=== PATIENT | female | born 1995 | race American Indian/Alaskan Native ===

== ENCOUNTER 2017-04-20 00:17 | Emergency (ER) | payer BC, OTHER ==
[2017-04-20 00:33] VITALS: RESP 16
[2017-04-20] MEDS ORDERED: Penicillin G Benzathine 1.2 Mill Unit/2 ml Syr IM STA (00:46)
--- NOTE | 2017-04-20 00:51 | ED PDOC ---
Arrival/HPI - General Chief Complaint: Flu-like Symptoms Time Seen by Provider: 04/20/17 00:46 Historian: Patient - History of Present Illness Narrative History of Present Illness (Text): 04/20/17 00:49 21 yo F w/ PMH of asthma and anemia, reports 1 day of fever with runny nose, nasal congestion, bodyaches, malaise and sore throat. Otherwise: (-) cough, (-) rash, (-) headache, (-) SOB, (-) chest pain, (-) N/V/D, (-) abdominal pain, (-) flank pain, (-) urinary symptoms, (-) recent travel, (-) sick contacts. Reports not receiving the flu vaccine. FARIBA Ibarra Past Medical History - Provider Review Nursing Documentation Reviewed: Yes - Pulmonary Hx Asthma: Yes - Psychiatric Hx Substance Use: No (denies) - Surgical History Hx Section: Yes (x2) - Anesthesia Hx Anesthesia: Yes Hx Anesthesia Reactions: No Hx Malignant Hyperthermia: No Family/Social History - Physician Review Nursing Documentation Reviewed: Yes Family/Social History: Unknown Family HX Smoking Status: Light Smoker < 10 Cigarettes Daily Hx Alcohol Use: Yes Frequency of alcohol use: Few days per week Hx Substance Use: No (denies) Allergies/Home Meds Allergies/Adverse Reactions: Allergies No Known Allergies Allergy (Verified 04/20/17 00:39) Review of Systems - Review of Systems Constitutional: Normal, Fatigue, Fevers. absent: Weight Change, Night Sweats ENT: Sore Throat, Rhinorrhea, Sinus Congestion Respiratory: Normal. absent: SOB, Cough, Sputum Cardiovascular: Normal. absent: Chest Pain, Palpitations, Edema Gastrointestinal: Normal. absent: Abdominal Pain, Diarrhea, Nausea, Vomiting Genitourinary Female: Normal. absent: Dysuria, Frequency, Hematuria Musculoskeletal: Normal. absent: Arthralgias, Back Pain, Neck Pain Skin: Normal. absent: Rash, Pruritis, Skin Lesions Physical Exam - Physical Exam Narrative Physical Exam (Text): 04/20/17 00:53 GENERAL APPEARANCE: Patient is awake, alert, oriented x 3, in no acute distress. SKIN: Warm, dry; (-) cyanosis, (-) rash. (-) Decubitus Ulcer EYES: (-) conjunctival pallor, (-) scleral icterus, (-) conjunctival hemorrhage. ENMT: Mucous membranes moist. TMs: (-) erythema. Airway patent: (-) stridor. Pharynx: (+) erythema, (+) exudate. NECK: (-) tenderness, (-) stiffness, (-) meningismus, (+) non-tender lymphadenopathy. CHEST AND RESPIRATORY: (-) accessory muscle use. Lungs: (-) rales, (-) rhonchi, (-) wheezes, (-) rub; breath sounds equal bilaterally. HEART AND CARDIOVASCULAR: (-) irregularity; (-) murmur, (-) gallop, (-) rub. ABDOMEN AND GI: Soft; (-) tenderness, (-) guarding; (-) organomegaly; (-) mass ; (-) CVA tenderness. EXTREMITIES: (-) deformity; (-) cellulitis, (-) lymphangitis; (-) subungual hemorrhage; (-) edema. NEURO AND PSYCH: Mental status as above; (-) focal findings. Vital Signs Temp Pulse Resp BP Pulse Ox 04/20/17 01:50 100.1 F H 112 H 16 115/92 H 100 04/20/17 00:58 102.9 F H 04/20/17 00:33 102.9 F H 115 H 16 129/76 99 Medical Decision Making ED Course and Treatment: 04/20/17 00:51 21 yo F reports 1 day of fever with runny nose, nasal congestion, bodyaches, malaise and sore throat. Plan : - Motrin 800 mg PO - Decadron 10 mg IM - PCN G 1.2 million units IM On re-evaluation, patient is laying in bed in no acute distress, speaking in full sentences, no drooling. VS T 100.1 P 112 R 16 BP 115/92 O2sat 100%RA. Dx of pharyngitis, and possible influenza d/w the patient. Advised bedrest, drink plenty of fluids, take motrin for fever. Instructed to follow up with primary care physician in 1-2 days without fail. Advised to take medication as prescribed. Return to the emergency room at any time for any new or worsening symptoms. Patient states she fully agrees with and understands discharge instructions. States that she agrees with the plan and disposition. Verbalized and repeated discharge instructions and plan. I have given the patient opportunity to ask any additional questions. - Medication Orders Current Medication Orders: Discontinued Medications Dexamethasone (Decadron Inj) 10 mg IM STAT STA Stop: 04/20/17 00:47 Last Admin: 04/20/17 00:58 Dose: 10 mg IM Administration Charges Document 04/20/17 00:58 YP (Rec: 04/20/17 00:58 YP [id number]) Injection Site MAR Injection Site Left Deltoid Charges for Administration # of IM Administrations 1 Ibuprofen (Motrin Tab) 800 mg PO STAT STA Stop: 04/20/17 00:47 Last Admin: 04/20/17 00:58 Dose: 800 mg MAR Pain/Vitals Document 04/20/17 00:58 YP (Rec: 04/20/17 00:58 YP [id number]) Vitals Temperature (97.6 F-99.6 F) 102.9 F Temperature Source Oral Penicillin G Benzathine (Bicillin L-A Inj) 1,200,000 units IM STAT STA PRN Reason: Protocol Stop: 04/20/17 00:47 Last Admin: 04/20/17 00:58 Dose: 1,200,000 units IM Administration Charges Document 04/20/17 00:58 YP (Rec: 04/20/17 00:58 YP [id number]) Injection Site MAR Injection Site Left Gluteus Jesse Charges for Administration # of IM Administrations 1 - PA / [employer] / Resident Statement / has reviewed & agrees with the documentation as recorded. Disposition/Present on Arrival - Present on Arrival Any Indicators Present on Arrival: No History of DVT/PE: No History of Uncontrolled Diabetes: No Urinary Catheter: No History of Decub. Ulcer: No History Surgical Site Infection Following: None - Disposition Have Diagnosis and Disposition been Completed?: Yes Diagnosis: Fever, Pharyngitis Disposition: HOME/ ROUTINE Disposition Time: 00:48 Patient Plan: Discharge Condition: STABLE Discharge Instructions (ExitCare): Pharyngitis (ED), Fever in Adults (ED), Influenza (ED) Print Language: KOREAN Additional Instructions: Thank you for letting us take care of you today. You were treated for fever, pharyngitis, consider influenza. The emergency medical care you received today was directed at your acute symptoms. If you were prescribed any medication, please fill it and take as directed. It may take several days for your symptoms to resolve. Return to the Emergency Department if your symptoms worsen, do not improve, or if you have any other problems. Please contact your doctor in 2 days for re-evaluation and follow up. Bring any paperwork you were given at discharge with you along with any medications you are taking to your follow up visit. Our treatment cannot replace ongoing medical care by a primary care provider (PCP) outside of the emergency department. Thank you for allowing the [facility] team to be part of your care today. Prescriptions: Ibuprofen [Motrin Tab] 600 mg PO QID PRN #20 tab PRN Reason: Fever >100.4 F Oseltamivir Phosphate [Tamiflu] 75 mg PO BID #10 capsule Referrals: PCP,NO [Primary Care Provider] - Follow up with primary Forms: [employer] [facility] / [facility] (Senegalese), WORK NOTE, SCHOOL NOTE
[2017-04-20 01:51] VITALS: BP 115/92; PULSE 112; TEMP 100.1; O2SAT 100
== END 2017-04-20 01:54 | disposition home or self-care (01) ==
LOC: ED 00:17
DX: J02.9 Acute pharyngitis, unspecified (principal); R50.9 Fever, unspecified; F17.210 Nicotine dependence, cigarettes, uncomplicated
CPT/HCPCS: 96372; 99284; J0561; J1100

== ENCOUNTER 2018-07-02 18:26 | Emergency (ER) | payer SELFPAY ==
[2018-07-02 18:34] VITALS: RESP 18; O2SAT 100; BMI 40.7
--- NOTE | 2018-07-02 20:22 | ED PDOC ---
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 Pt reports one episode of vomiting on arrival to the ED. States her previous anxiety episodes was never associated with vomiting like she had today. Notes resolution of her symptoms while she was in ED. Denies chest pain, diaphoresis, nausea, abdominal pain, fever, chills, cough, urinary symptoms, LE edema, calf pain, any other complaint. Past Medical History - Provider Review Nursing Documentation Reviewed: Yes - Infectious Disease Hx of Infectious Diseases: None - Reproductive Menopause: No - Pulmonary Hx Asthma: Yes - Psychiatric Hx Substance Use: No (denies) - Surgical History Hx Section: Yes (x2) - Anesthesia Hx Anesthesia: Yes Hx Anesthesia Reactions: No Hx Malignant Hyperthermia: No Family/Social History - Physician Review Nursing Documentation Reviewed: Yes Family/Social History: Unknown Family HX Smoking Status: Light Smoker < 10 Cigarettes Daily Hx Alcohol Use: Yes Hx Substance Use: No (denies) Allergies/Home Meds Allergies/Adverse Reactions: Allergies No Known Allergies Allergy (Verified 04/20/17 00:39) Review of Systems - Physician Review All systems were reviewed & negative as marked: Yes - Review of Systems Constitutional: Normal Eyes: Normal ENT: Normal Respiratory: SOB. absent: Cough, Sputum, Wheezing Cardiovascular: Normal Gastrointestinal: Vomiting. absent: Abdominal Pain, Constipation, Diarrhea, Nausea, Hematochezia, Hematemesis Genitourinary Female: Normal Musculoskeletal: Normal Skin: Normal Neurological: Normal Endocrine: Normal Hemo/Lymphatic: Normal Psychiatric: Normal Physical Exam Vital Signs Reviewed: Yes Vital Signs Temp Pulse Resp BP Pulse Ox 07/02/18 18:34 98.6 F 111 H 18 142/77 100 Temperature: Afebrile Blood Pressure: Normal Pulse: Tachycardic Respiratory Rate: Normal Appearance: Positive for: Well-Appearing, Non-Toxic, Comfortable Pain Distress: None Mental Status: Positive for: Alert and Oriented X 3 - Systems Exam Head: Present: Atraumatic, Normocephalic Pupils: Present: PERRL Extroacular Muscles: Present: EOMI Conjunctiva: Present: Normal Mouth: Present: Moist Mucous Membranes Neck: Present: Normal Range of Motion Respiratory/Chest: Present: Clear to Auscultation, Good Air Exchange. No: Respiratory Distress, Accessory Muscle Use, Wheezes, Decreased Breath Sounds, Rales, Retracting, Rhonchi, Tachypneic, Tender to Palpation Cardiovascular: Present: Regular Rate and Rhythm, Normal S1, S2. No: Murmurs Abdomen: No: Tenderness, Distention, Peritoneal Signs Back: Present: Normal Inspection Upper Extremity: Present: Normal Inspection. No: Cyanosis, Edema Lower Extremity: Present: Normal Inspection. No: Edema Neurological: Present: GCS=15, CN II-XII Intact, Speech Normal Skin: Present: Warm, Dry, Normal Color. 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 Denies chest pain. er Lung was CTA b/l. She was hemodynamically stable. No hypoxic. EKG NSR @ 76bp,. Right cunningham axis. N-stemi Chest xray - NAD Result was DW the pt. she was advised to f/u with her PMD for further outpt evaluation - RAD Interpretation Radiology Orders: 07/02/18 19:02 CHEST TWO VIEWS (PA/LAT) [RAD] Stat Disposition/Present on Arrival - Present on Arrival Any Indicators Present on Arrival: No History of DVT/PE: No History of Uncontrolled Diabetes: No Urinary Catheter: No History of Decub. Ulcer: No History Surgical Site Infection Following: None - Disposition Have Diagnosis and Disposition been Completed?: Yes Diagnosis: SOB (shortness of breath) Disposition: HOME/ ROUTINE Disposition Time: 20:25 Patient Plan: Discharge Condition: STABLE Discharge Instructions (ExitCare): Shortness of Breath (Dyspnea) Additional Instructions: Follow up with your doctor Return to ED for any new or worsening symptoms Referrals: Tonya Ibarra MD [Primary Care Provider] - Follow up with primary
[2018-07-02 20:44] VITALS: BP 128/65; PULSE 89; TEMP 98.2
--- NOTE | 2018-07-03 09:33 | RAD ---
Date of service: 07/02/2018 HISTORY: SOB COMPARISON: No prior. TECHNIQUE: Chest PA and lateral FINDINGS: LUNGS: No active pulmonary disease. PLEURA: No significant pleural effusion identified. No pneumothorax apparent. CARDIOVASCULAR: No aortic atherosclerotic calcification present. Normal cardiac size. No pulmonary vascular congestion. OSSEOUS STRUCTURES: No significant abnormalities. VISUALIZED UPPER ABDOMEN: Normal. OTHER FINDINGS: None. IMPRESSION: No active disease.
--- NOTE | 2018-07-03 15:52 | CARD ---
APPROVED REPORT Date of service: 07/02/2018 EKG Measurement Heart [id number] <Conclusion> Normal sinus rhythm with sinus arrhythmia Possible Left atrial enlargement Borderline ECG
== END 2018-07-02 20:44 | disposition home or self-care (01) ==
LOC: ED 18:26
DX: R06.02 Shortness of breath (principal); F17.210 Nicotine dependence, cigarettes, uncomplicated; E66.01 Morbid (severe) obesity due to excess calories